=== PATIENT | male | born 1960 | race Caucasian/White ===

== ENCOUNTER 2017-02-01 15:59 | Inpatient (IN) | payer MEDICAID ==
[~2017-02-01] VITALS: Ht 172.7 cm; Wt 76.4 kg
[~2017-02-01 15:59] MED LIST: AMIO100T4 PO; METO5AMP3 PO; PANT40TA4 PO
[2017-02-01] MEDS ORDERED: ALBUTEROL (0.083%) 2.5MG/3ML NEB HHN STA (16:14)
[2017-02-01] MEDS ORDERED: FUROSEMIDE 40MG/4ML VIAL IV STA (16:14)
[2017-02-01] MEDS ORDERED: NITROGLYCERIN OINT 1GM/INCH UDPKT TD STA (16:14)
[2017-02-01 16:35] LABS: BASOPHILS % 0.8 % (0.0-2.0); EOSINOPHILS % 1.8 % (0.0-5.0); HEMATOCRIT. 29.7 % (42.0-52.0); LYMPHOCYTES % 18.4 % (20.0-50.0); MEAN CORPUSCULAR HEMOGLOBIN 29.9 pg (28.0-32.0); MEAN CORPUSCULAR VOLUME 88.9 fL (80.0-94.0); MEAN PLATELET VOLUME 8.7 fl (7.4-10.4); MONOCYTES % 7.9 % (2.0-8.0); NEUTROPHILS % 71.1 % (40.0-76.0); PLATELET 214 x1000/uL (130-400); RED BLOOD CELL COUNT 3.34 mill/uL (4.7-6.1); RED CELL DISTRIBUTION WIDTH 15.9 % (11.6-14.6)
[2017-02-01 16:47] LABS: CARBON DIOXIDE 24 mEq/L (21-32); CHLORIDE 112 mEq/L (98-107); PHOSPHORUS 3.9 mg/dL (2.5-4.9)
[2017-02-01 16:50] LABS: INR 1.1; PARTIAL THROMBOPLASTIN TIME 25.8 sec (23.4-31.0); PROTHROMBIN TIME 11.5 sec (9.4-11.6)
[2017-02-01 16:51] LABS: TROPONIN I 0.05 ng/mL (0.00-0.04)
[2017-02-01] MEDS ORDERED: HYDROCODONE/ACETAMINOPHEN 5/325MG TABLET PO ONE (17:00)
[2017-02-01 17:01] LABS: BG BASE EXCESS -3.1 mmol/L (-2.0-2.0); BG CARBOXYHEMOGLOBIN 0.7 % (0.5-1.5); BG DEOXYHEMOGLOBIN 9.6 % (0.0-5.0); BG HCO3 ACT 20.7 mmol/L (22.0-26.0); BG METHEMOGLOBIN 0.3 % (0.0-1.5); BG OXYGEN SATURATION 90.3 % (92.0-98.5); BG OXYHEMOGLOBIN 89.4 % (94.0-97.0); BG PCO2 32.8 mmHg (35.0-45.0); BG PH 7.419 (7.350-7.450); BG SAMPLE SITE LEFT RADIAL; BG TOTAL HEMOGLOBIN 10.4 g/dL (12.0-18.0); BG VENT MODE ROOM AIR
[2017-02-01] MEDS ORDERED: LEVOFLOXACIN 500MG PREMIX 100 ML IV ONE (17:30)
[2017-02-01 18:38] LABS: *AMPHETAMINES SCREEN URINE NEGATIVE (NEGATIVE); *BARBITURATES SCREEN URINE NEGATIVE (NEGATIVE); *BENZODIAZEPINES SCREEN URINE NEGATIVE (NEGATIVE); *COCAINE SCREEN URINE NEGATIVE (NEGATIVE); CANNABINOID URINE SCREEN NEGATIVE (NEGATIVE); METHADONE URINE SCREEN NEGATIVE (NEGATIVE); OPIATES URINE SCREEN NEGATIVE (NEGATIVE); PHENCYCLIDINE URINE SCREEN NEGATIVE (NEGATIVE)
[2017-02-01 20:00] VITALS: BP 172/89
[2017-02-01 21:15] VITALS: BP 172/89
[2017-02-01 23:24] VITALS: BP 173/89
[2017-02-02] MEDS ORDERED: IPRATROPIUM/ALBUTEROL 0.5-3(2.5)MG/3ML NEB INH PRN
[2017-02-02] MEDS ORDERED: ONDANSETRON HCL 4MG/2ML VIAL IV PRN
[2017-02-02 04:00] VITALS: BP 152/96
[2017-02-02] MEDS: CLONIDINE 0.1MG TABLET PO PRN ×2 (06:25→17:05)
[2017-02-02] MEDS: BLOOD SUGAR DIAGNOSTIC STRIP TEST SCH ×4 (06:29→21:13)
[2017-02-02] MEDS: INSULIN LISPRO 100 UNITS/ML SUBCUT SCH ×4 (06:29→21:15)
[2017-02-02] MEDS ORDERED: DEXTROSE 50% WATER 50ML SYRINGE IV PRN (06:30)
[2017-02-02] MEDS ORDERED: BENA20TA3 PO (06:56)
[2017-02-02] MEDS ORDERED: METF500T PO (06:56)
[2017-02-02 08:00] VITALS: BP 145/77
[2017-02-02 08:24] LABS: BASOPHILS % 0.6 % (0.0-2.0); EOSINOPHILS % 2.8 % (0.0-5.0); HEMATOCRIT. 28.5 % (42.0-52.0); HEMOGLOBIN. 9.5 g/dL (14.0-18.0); LYMPHOCYTES % 22.2 % (20.0-50.0); MEAN CORPUSCULAR HEMOGLOBIN 29.6 pg (28.0-32.0); MEAN CORPUSCULAR VOLUME 88.7 fL (80.0-94.0); MEAN PLATELET VOLUME 9.1 fl (7.4-10.4); MONOCYTES % 10.9 % (2.0-8.0); NEUTROPHILS % 63.5 % (40.0-76.0); PLATELET 203 x1000/uL (130-400); RED BLOOD CELL COUNT 3.21 mill/uL (4.7-6.1); RED CELL DISTRIBUTION WIDTH 15.6 % (11.6-14.6)
[2017-02-02] MEDS ORDERED: INFLUENZA VIRUS VACCINE 0.5ML SYR IM ONE (10:00)
[2017-02-02] MEDS ORDERED: LEVOFLOXACIN 500MG PREMIX 100 ML IV SCH (10:45)
[2017-02-02] MEDS ORDERED: PNEUMOCOCCAL 23-VAL P-SAC VAC 0.5 ML IM ONE (11:00)
[2017-02-02 12:00] VITALS: BP 150/89
[2017-02-02] MEDS: LEVOFLOXACIN 250MG PREMIX 50 ML IV SCH (12:17)
[2017-02-02] MEDS: IPRATROPIUM/ALBUTEROL 0.5-3(2.5)MG/3ML NEB HHN SCH ×2 (13:10→21:31)
[2017-02-02 16:00] VITALS: BP 161/89
[2017-02-02 20:00] VITALS: BP 141/82
[2017-02-03] VITALS: BP 156/88
[2017-02-03] MEDS: IPRATROPIUM/ALBUTEROL 0.5-3(2.5)MG/3ML NEB HHN SCH ×4 (02:00→20:32)
[2017-02-03] MEDS: ACETAMINOPHEN 325MG TABLET PO PRN (03:13)
[2017-02-03 04:00] VITALS: BP 158/85
[2017-02-03] MEDS: CLONIDINE 0.1MG TABLET PO PRN (05:57)
[2017-02-03] MEDS: BLOOD SUGAR DIAGNOSTIC STRIP TEST SCH ×4 (06:40→21:39)
[2017-02-03 08:00] VITALS: BP 145/84
[2017-02-03] MEDS: INSULIN LISPRO 100 UNITS/ML SUBCUT SCH ×4 (08:10→21:39)
[2017-02-03] MEDS: LEVOFLOXACIN 250MG PREMIX 50 ML IV SCH (11:51)
[2017-02-03 12:00] VITALS: BP 158/90
[2017-02-03 12:03] LABS: BASOPHILS % 0.2 % (0.0-2.0); EOSINOPHILS % 1.8 % (0.0-5.0); HEMATOCRIT. 26.4 % (42.0-52.0); HEMOGLOBIN. 8.9 g/dL (14.0-18.0); LYMPHOCYTES % 10.4 % (20.0-50.0); MEAN CORPUSCULAR HEMOGLOBIN 30.3 pg (28.0-32.0); MEAN CORPUSCULAR VOLUME 89.5 fL (80.0-94.0); MONOCYTES % 8.9 % (2.0-8.0); NEUTROPHILS % 78.7 % (40.0-76.0); PLATELET 174 x1000/uL (130-400); RED BLOOD CELL COUNT 2.95 mill/uL (4.7-6.1); RED CELL DISTRIBUTION WIDTH 15.8 % (11.6-14.6)
[2017-02-03 12:34] LABS: CARBON DIOXIDE 24 mEq/L (21-32); CHLORIDE 108 mEq/L (98-107); HDL CHOLESTEROL 25 mg/dL (40-59); LDL CHOLESTEROL 51 mg/dL (5-100)
[2017-02-03 16:00] VITALS: BP 157/71
[2017-02-03 20:00] VITALS: BP 142/80
[2017-02-03 20:12] LABS: HEPATITIS B SURFACE ANTIGEN NEGATIVE
[2017-02-03 20:41] LABS: HEPATITIS B CORE AB IGM NEGATIVE
[2017-02-03 20:42] LABS: HEPATITIS A AB IGM NEGATIVE (NEGATIVE)
[2017-02-04] VITALS: BP 145/78
[2017-02-04] MEDS: IPRATROPIUM/ALBUTEROL 0.5-3(2.5)MG/3ML NEB HHN SCH ×4 (02:13→20:48)
[2017-02-04 04:00] VITALS: BP 149/79
[2017-02-04] MEDS: BLOOD SUGAR DIAGNOSTIC STRIP TEST SCH ×4 (06:56→20:29)
[2017-02-04 07:06] LABS: BASOPHILS % 0.4 % (0.0-2.0); EOSINOPHILS % 3.1 % (0.0-5.0); HEMATOCRIT. 26.4 % (42.0-52.0); HEMOGLOBIN. 8.9 g/dL (14.0-18.0); LYMPHOCYTES % 22.5 % (20.0-50.0); MEAN CORPUSCULAR HEMOGLOBIN 29.8 pg (28.0-32.0); MEAN CORPUSCULAR VOLUME 88.7 fL (80.0-94.0); MEAN PLATELET VOLUME 9.1 fl (7.4-10.4); MONOCYTES % 13.1 % (2.0-8.0); NEUTROPHILS % 60.9 % (40.0-76.0); PLATELET 180 x1000/uL (130-400); RED BLOOD CELL COUNT 2.97 mill/uL (4.7-6.1); RED CELL DISTRIBUTION WIDTH 15.6 % (11.6-14.6)
[2017-02-04 08:00] VITALS: BP 153/90
[2017-02-04] MEDS: INSULIN LISPRO 100 UNITS/ML SUBCUT SCH ×4 (08:10→20:35)
[2017-02-04] MEDS: LEVOFLOXACIN 250MG PREMIX 50 ML IV SCH (11:29)
[2017-02-04] MEDS: ACETAMINOPHEN 325MG TABLET PO PRN (11:44)
[2017-02-04 12:00] VITALS: BP 150/77
[2017-02-04 16:00] VITALS: BP 142/73
[2017-02-04 20:00] VITALS: BP 151/81
[2017-02-05] VITALS: BP 140/75
[2017-02-05] MEDS: IPRATROPIUM/ALBUTEROL 0.5-3(2.5)MG/3ML NEB HHN SCH ×4 (00:45→20:44)
[2017-02-05 04:00] VITALS: BP 143/74
[2017-02-05] MEDS: INSULIN LISPRO 100 UNITS/ML SUBCUT SCH ×4 (06:46→21:00)
[2017-02-05] MEDS: BLOOD SUGAR DIAGNOSTIC STRIP TEST SCH ×4 (06:46→21:14)
[2017-02-05 06:47] LABS: BASOPHILS % 0.5 % (0.0-2.0); EOSINOPHILS % 5.1 % (0.0-5.0); HEMATOCRIT. 26.4 % (42.0-52.0); LYMPHOCYTES % 21.8 % (20.0-50.0); MEAN CORPUSCULAR HEMOGLOBIN 30.3 pg (28.0-32.0); MEAN CORPUSCULAR VOLUME 89.2 fL (80.0-94.0); MEAN PLATELET VOLUME 9.4 fl (7.4-10.4); MONOCYTES % 12.5 % (2.0-8.0); NEUTROPHILS % 60.1 % (40.0-76.0); PLATELET 167 x1000/uL (130-400); RED BLOOD CELL COUNT 2.96 mill/uL (4.7-6.1); RED CELL DISTRIBUTION WIDTH 15.7 % (11.6-14.6)
[2017-02-05 08:00] VITALS: BP 163/87
[2017-02-05] MEDS: ACETAMINOPHEN 325MG TABLET PO PRN (08:57)
[2017-02-05 12:00] VITALS: BP 125/68
[2017-02-05] MEDS: LEVOFLOXACIN 250MG PREMIX 50 ML IV SCH (13:53)
[2017-02-05 16:00] VITALS: BP 158/89
[2017-02-05 20:00] VITALS: BP 132/72
[2017-02-06] VITALS: BP 136/55
[2017-02-06] MEDS: IPRATROPIUM/ALBUTEROL 0.5-3(2.5)MG/3ML NEB HHN SCH ×4 (02:18→20:19)
[2017-02-06 04:00] VITALS: BP 136/68
[2017-02-06] MEDS: BLOOD SUGAR DIAGNOSTIC STRIP TEST SCH ×4 (06:44→21:00)
[2017-02-06] MEDS: INSULIN LISPRO 100 UNITS/ML SUBCUT SCH ×4 (06:44→21:26)
[2017-02-06 08:00] VITALS: BP 143/80
[2017-02-06] MEDS: LEVOFLOXACIN 250MG PREMIX 50 ML IV SCH (11:12)
[2017-02-06 12:00] VITALS: BP 135/60
[2017-02-06] MEDS: ACETAMINOPHEN 325MG TABLET PO PRN (15:55)
[2017-02-06 16:00] VITALS: BP 153/77
[2017-02-06 20:00] VITALS: BP 156/85
[2017-02-07] VITALS: BP 149/83
[2017-02-07] MEDS: IPRATROPIUM/ALBUTEROL 0.5-3(2.5)MG/3ML NEB HHN SCH ×4 (01:12→20:32)
[2017-02-07 04:00] VITALS: BP 144/88
[2017-02-07 06:29] LABS: BASOPHILS % 0.4 % (0.0-2.0); HEMATOCRIT. 30.6 % (42.0-52.0); HEMOGLOBIN. 10.2 g/dL (14.0-18.0); LYMPHOCYTES % 27.7 % (20.0-50.0); MEAN CORPUSCULAR HEMOGLOBIN 29.8 pg (28.0-32.0); MEAN CORPUSCULAR VOLUME 89.3 fL (80.0-94.0); MEAN PLATELET VOLUME 9.5 fl (7.4-10.4); MONOCYTES % 11.6 % (2.0-8.0); NEUTROPHILS % 55.3 % (40.0-76.0); PLATELET 213 x1000/uL (130-400); RED BLOOD CELL COUNT 3.43 mill/uL (4.7-6.1); RED CELL DISTRIBUTION WIDTH 15.5 % (11.6-14.6)
[2017-02-07] MEDS: BLOOD SUGAR DIAGNOSTIC STRIP TEST SCH ×4 (06:50→21:45)
[2017-02-07 08:00] VITALS: BP 152/85
[2017-02-07] MEDS: INSULIN LISPRO 100 UNITS/ML SUBCUT SCH ×4 (08:10→21:00)
[2017-02-07] MEDS: LEVOFLOXACIN 250MG PREMIX 50 ML IV SCH (11:24)
[2017-02-07 12:00] VITALS: BP 155/87
[2017-02-07 13:37] LABS: HEPATITIS B CORE AB IGM NEGATIVE
[2017-02-07 16:00] VITALS: BP 145/80
[2017-02-07] MEDS: ACETAMINOPHEN 325MG TABLET PO PRN (18:20)
[2017-02-07 20:00] VITALS: BP 140/72
[2017-02-08] VITALS: BP 146/86
[2017-02-08] MEDS: IPRATROPIUM/ALBUTEROL 0.5-3(2.5)MG/3ML NEB HHN SCH ×3 (02:10→12:35)
[2017-02-08 04:00] VITALS: BP 146/79
[2017-02-08 07:34] LABS: BASOPHILS % 0.6 % (0.0-2.0); EOSINOPHILS % 4.1 % (0.0-5.0); HEMATOCRIT. 28.5 % (42.0-52.0); HEMOGLOBIN. 9.7 g/dL (14.0-18.0); LYMPHOCYTES % 30.7 % (20.0-50.0); MEAN CORPUSCULAR VOLUME 88.6 fL (80.0-94.0); MEAN PLATELET VOLUME 9.3 fl (7.4-10.4); NEUTROPHILS % 50.6 % (40.0-76.0); PLATELET 196 x1000/uL (130-400); RED BLOOD CELL COUNT 3.22 mill/uL (4.7-6.1); RED CELL DISTRIBUTION WIDTH 15.3 % (11.6-14.6)
[2017-02-08 08:00] VITALS: BP 138/75
[2017-02-08] MEDS: INSULIN LISPRO 100 UNITS/ML SUBCUT SCH (08:10)
[2017-02-08] MEDS: BLOOD SUGAR DIAGNOSTIC STRIP TEST SCH (08:38)
[2017-02-08 12:00] VITALS: BP 140/82
[2017-02-08] MEDS: LEVOFLOXACIN 250MG PREMIX 50 ML IV SCH (12:52)
[2017-02-08 16:00] VITALS: BP 142/79
[2017-02-08 16:15] VITALS: BP 138/82
== END 2017-02-08 17:10 | disposition home or self-care (01) | DRG 470 ==
LOC: ER 16:14 → 7WST 17:20 → EDBEDREQ 17:24 → ENRESERV 20:21 → 7WST 22:02
PROVIDERS: ADMIT Internal Medicine; ATTEND Internal Medicine
PROC: 5A1D70Z Performance of Urinary Filtration, Intermittent, Less than 6 Hours Per Day (ICD-10-PCS; principal; 2017-02-01)
PROC: 5A1D70Z Performance of Urinary Filtration, Intermittent, Less than 6 Hours Per Day (ICD-10-PCS; 2017-02-05)
DX: I12.0 Hypertensive chronic kidney disease with stage 5 chronic kidney disease or end stage renal disease (principal); J96.00 Acute respiratory failure, unspecified whether with hypoxia or hypercapnia; J18.9 Pneumonia, unspecified organism; N17.9 Acute kidney failure, unspecified; N18.6 End stage renal disease; R65.10 Systemic inflammatory response syndrome (SIRS) of non-infectious origin without acute organ dysfunction; E11.22 Type 2 diabetes mellitus with diabetic chronic kidney disease; E87.70 Fluid overload, unspecified; F12.90 Cannabis use, unspecified, uncomplicated; Z79.82 Long term (current) use of aspirin; Z79.899 Other long term (current) drug therapy; Z86.73 Personal history of transient ischemic attack (TIA), and cerebral infarction without residual deficits; Z91.19 Patient's noncompliance with other medical treatment and regimen; Z91.15 Patient's noncompliance with renal dialysis
CPT/HCPCS: 36415; 36600; 71010; 80048; 80053; 80061; 80305; 82375; 82805; 82962; 83036; 83690; 83735; 84100; 84443; 84484; 85025; 85610; 85730; 86705; 86706; 86709; 86803; 87040; 87340; 90686; 90732; 93005; 94640; 96365; 96375; 99291; J1815; J1940; J1956; J7030; J7050; J7620